=== PATIENT | female | born 1975 | race Two or more races ===

== ENCOUNTER 2022-04-06 07:23 | Outpatient (CLI) | payer OTHER | END 2022-04-06 07:26 | disposition home or self-care (01) | LOC: NUCLEAR 07:23 | PROVIDERS: ATTEND General Practice | DX: E05.00 Thyrotoxicosis with diffuse goiter without thyrotoxic crisis or storm (principal) | CPT/HCPCS: 78014; A9528 ==

== ENCOUNTER 2022-04-07 07:13 | Outpatient (CLI) | payer OTHER | END 2022-04-07 07:14 | disposition home or self-care (01) | LOC: NUCLEAR 07:13 | PROVIDERS: ATTEND General Practice | DX: E05.00 Thyrotoxicosis with diffuse goiter without thyrotoxic crisis or storm (principal) | CPT/HCPCS: 78014; A9528 ==

== ENCOUNTER 2022-07-05 13:04 | Outpatient (CLI) | payer OTHER | END 2022-07-05 13:05 | disposition home or self-care (01) | LOC: NUCLEAR 13:04 | PROVIDERS: ATTEND Internal Medicine Sports Medicine | DX: E05.90 Thyrotoxicosis, unspecified without thyrotoxic crisis or storm (principal) | CPT/HCPCS: 79005; A9517 ==

== ENCOUNTER → 2022-07-05 14:09 | Outpatient (CLI) | payer OTHER | END | disposition home or self-care (01) | LOC: LAB 14:09 | PROVIDERS: ATTEND Internal Medicine Sports Medicine | DX: Z32.00 Encounter for pregnancy test, result unknown (principal) ==

== ENCOUNTER 2024-06-14 07:24 | Outpatient (CLI) | payer OTHER ==
[~2024-06-14 07:24] MED LIST: DICLOFENAC POTA50 MG PO; DOLOGESIC 500-1 EACH PO; LYRICA50 MG PO; METHOCARBAMOL500 MG PO; NORFLEX100MG PO
== END 2024-06-14 07:25 | disposition home or self-care (01) ==
LOC: NUCLEAR 07:24
DX: M19.90 Unspecified osteoarthritis, unspecified site (principal)